=== PATIENT | female | born 1990 | race Caucasian/White ===

== ENCOUNTER 2017-12-22 14:37 | Emergency (ER) | payer SELFPAY ==
[~2017-12-22] VITALS: Ht 180.3 cm; Wt 91.0 kg
[2017-12-22 14:48] VITALS: BP 138/78
== END 2017-12-22 17:05 | disposition left against medical advice (07) ==
LOC: ER 17:05
DX: S61.412A Laceration without foreign body of left hand, initial encounter (principal); W29.1XXA Contact with electric knife, initial encounter; Y93.89 Activity, other specified; Y92.89 Other specified places as the place of occurrence of the external cause; Y99.8 Other external cause status
CPT/HCPCS: 99281; 99282